=== PATIENT | male | born 2005 | race African-American/Black ===

== ENCOUNTER 2023-10-13 06:00 | Day surgery (SDC) | payer OTHER ==
[2023-10-13] MEDS ORDERED: LIDOCAINE HCL/EPINEPHRINE 20 ML MDV ONE (06:17)
[2023-10-13] MEDS ORDERED: BACITRACIN OINTMENT 14 GM TUBE TOP ONE (06:17)
[2023-10-13] MEDS: Ringers Lactate 1,000 ML IV ONE (06:25)
[2023-10-13] MEDS ORDERED: dexAMETHasone 10 MG/ML VIAL ONE (06:36)
[2023-10-13] MEDS ORDERED: ONDANSETRON 4 MG/2 ML VIAL ONE (06:36)
[2023-10-13] MEDS ORDERED: propofoL 200 MG/20 ML VIAL IV ONE (06:36)
[2023-10-13] MEDS ORDERED: LIDOCAINE 1% MPF 5 ML VIAL ONE (06:36)
[2023-10-13] MEDS ORDERED: KETOROLAC 30 MG/ML INJ ONE (06:36)
[2023-10-13] MEDS ORDERED: MIDAZOLAM HCL 2 MG/2 ML INJ ONE (06:37)
[2023-10-13] MEDS ORDERED: FENTANYL CITR 100 MCG/2 ML ONE (06:37)
[2023-10-13] MEDS: OXYMETAZOLINE HCL 0.05% 15ML NAS ONE ×2 (06:40→07:22)
[2023-10-13 07:42] VITALS: O2SAT 99
--- NOTE | 2023-10-13 07:43 | P.OP ---
Art Editor: NONE,NONE Preoperative diagnosis: Displaced and comminuted bilateral nasal bone fracture Postoperative diagnosis: Same Primary procedure: Closed nasal reduction with stabilization Anesthesia: General via LMA Estimated blood loss: nil Specimen: none Findings: good reduction Operative Technique: After induction of general anesthesia, the nasal cavity was examined using a headlight and nasal speculum. A small amount of mucus and crusting was suctioned from the nose. The patient was noted to have a right posterior septal spur and mild septal deviation with no significant mobility, bruising or evidence of hematoma. The external nose was noted to have a partially healed fracture including outward lateral deviation of the left nasal bone and me dial/inward displacement of the right nasal bone. A Martinez elevator was placed within the right nasal cavity and used to reposition and reduce the right nasal bone fracture into position. External pressure was applied to the left nasal dorsum in order to reduce the fracture. At the conclusion of the reduction, the nasal dorsum appeared much more midline in comparison to preoperative photos. T he nasal cavity was examined using an nasal speculum and headlight and there was no evidence of any bleeding or mucosal laceration. No nasal packing was required. An external thermoplastic splint was heated to appropriate temperature. Mastisol and Steri-Strips were applied to the skin and the thermoplastic splint was applied to the nose for stabilization of the fracture. The procedure was concluded. No complications were noted. Disposition Notes: The patient will be discharged home with nasal precautions including avoidance of nose blowing and vigorous activity for 2 weeks. The patient may then resume noncontact activities such as running, punching bag training or weightlifting taking care to avoid any activities where further facial injury could occur. These precautions are recommended for 6 weeks. The splint likely will fall off over the next few days. The patient is scheduled for follow-up but if he is doing well and has no concerns, they can cancel this visit if desired. Complications: None Implants: none Fluids & blood products: crystalloid 250ml Transferred to: Recovery Room Condition: Good
[2023-10-13 10:18] VITALS: BP 143/75; TEMP 97.1
== END 2023-10-13 08:52 | disposition home or self-care (01) ==
LOC: OR 06:00
PROVIDERS: ATTEND Otolaryngology
PROC: 0NSBXZZ Reposition Nasal Bone, External Approach (ICD-10-PCS; principal; 2023-10-13 07:00)
DX: S02.2XXD Fracture of nasal bones, subsequent encounter for fracture with routine healing (principal)
CPT/HCPCS: 21320; J2704; J2001; J2250; J3010; J1100; J2405; J7120